=== PATIENT | male | born 1955 | race Caucasian/White ===

== ENCOUNTER → 2017-08-08 | Outpatient (CLI) | payer BC ==
[2017-08-08 09:28] LABS: CHOL/HDL RATIO 5.2; Cholesterol 202 mg/dL (50-200); HDL Cholesterol 39 mg/dL (>39); LDL/HDL RATIO 2.3; Low Density Lipoprotein Chol 90 mg/dL (0-110); Triglycerides 367 mg/dL (30-160); Very Low Density Lipoprot Chol 73 mg/dL (6-32)
== END ==
LOC: LAB SHORT 08:58
PROVIDERS: Nurse Practitioner Family
DX: E78.5 Hyperlipidemia, unspecified (principal)
CPT/HCPCS: 80061

== ENCOUNTER → 2017-10-30 | Outpatient (CLI) | payer BC ==
[2017-10-30 09:54] LABS: CHOL/HDL RATIO 5.8; Cholesterol 226 mg/dL (50-200); HDL Cholesterol 39 mg/dL (>39); LDL/HDL RATIO 2.8; Low Density Lipoprotein Chol 110 mg/dL (0-110); Triglycerides 386 mg/dL (30-160); Very Low Density Lipoprot Chol 77 mg/dL (6-32)
== END | disposition home or self-care (01) ==
LOC: LAB 09:01 → LAB SHORT 09:01
PROVIDERS: Nurse Practitioner Family
DX: E78.00 Pure hypercholesterolemia, unspecified (principal)
CPT/HCPCS: 80061

== ENCOUNTER → 2019-07-20 | Outpatient (CLI) | payer BC ==
[2019-07-21 13:37] LABS: Stool Occult Blood Guaiac 1 Neg (Neg)
== END | disposition home or self-care (01) ==
LOC: OLS 12:15 → LAB SHORT 12:15 → LAB FUT 07-19 15:00
PROVIDERS: Nurse Practitioner Family
DX: K92.1 Melena (principal); R53.83 Other fatigue
CPT/HCPCS: 82270

== ENCOUNTER → 2022-10-30 | Outpatient (CLI) | payer BC ==
[2022-10-30 19:38] LABS: BASOPHILS ABSOLUTE AUTO 0.05 K/mm3 (0.00-0.23); BASOPHILS PERCENT AUTO 1 % (0-2); EOSINOPHILS ABSOLUTE AUTO 0.11 K/mm3 (0.00-0.68); EOSINOPHILS PERCENT AUTO 1 % (0-6); Hematocrit 45.2 % (37.0-53.0); Hemoglobin 15.2 g/dL (13.5-17.5); IMMATURE GRAN ABSOLUTE AUTO 0.03 K/mm3 (0.00-0.10); IMMATURE GRAN PERCENT AUTO 0 % (0-1); LYMPHOCYTES ABSOLUTE AUTO 2.95 K/mm3 (0.84-5.20); LYMPHOCYTES PERCENT AUTO 31 % (21-46); MONOCYTES ABSOLUTE AUTO 0.65 K/mm3 (0.16-1.47); MONOCYTES PERCENT AUTO 7 % (4-13); Mean Corpuscular HGB 30.7 pg (26.0-34.0); Mean Corpuscular HGB Conc 33.6 g/dL (31.5-36.5); Mean Corpuscular Volume 91 fL (80-100); Mean Platelet Volume 10.4 fL (9.1-12.4); NEUTROPHILS ABSOLUTE AUTO 5.81 K/mm3 (1.96-9.15); NEUTROPHILS PERCENT AUTO 61 % (41-73); Platelet Count 336 K/mm3 (150-400); RDW Standard Deviation 43.7 fL (35.1-46.3); Red Blood Cell Count 4.95 M/mm3 (4.30-5.90)
[2022-10-30 20:03] LABS: Alanine Aminotransfer (ALT/SGP 33 U/L (12-78); Albumin, Blood 4.3 g/dL (3.4-5.0); Albumin/Globulin Ratio 1.2 (0.8-1.8); Alk Phos 43 U/L (50-136); Anion Gap 3 mmol/L (6-16); Aspartate Aminotrans (AST/SGOT 21 U/L (12-37); Bilirubin, Total 0.5 mg/dL (0.1-1.0); Blood Urea Nitrogen 19 mg/dL (8-24); Bun/Creatinine Ratio 22.9 (12.0-20.0); CO2, Blood 26 mmol/L (21-32); Calcium, Blood 9.4 mg/dL (8.5-10.1); Chloride, Blood 107 mmol/L (98-108); Cholesterol 197 mg/dL (50-200); Creatinine, Blood 0.83 mg/dL (0.60-1.20); Globulin, Blood 3.5 g/dL (2.2-4.0); Glomerular Filtration Rate 97 (60-); Glucose, Blood 118 mg/dL (70-99); HDL Cholesterol 33 mg/dL (>39); LDL/HDL RATIO Unable to Calculate; Low Density Lipoprotein Chol Unable to Calculate mg/dL (0-110); Potassium, Blood 3.9 mmol/L (3.5-5.5); Sodium, Blood 136 mmol/L (136-145); Total Protein, Blood 7.8 g/dL (6.4-8.2); Triglycerides 532 mg/dL (30-160); Very Low Density Lipoprot Chol Unable to Calculate mg/dL (6-32)
== END ==
LOC: LAB SHORT 17:52
PROVIDERS: Family Medicine
DX: Z12.5 Encounter for screening for malignant neoplasm of prostate (principal); E78.5 Hyperlipidemia, unspecified
CPT/HCPCS: 80053; 80061; 85025; G0103

== ENCOUNTER → 2023-06-28 | Outpatient (CLI) | payer OTHER ==
[2023-06-28 20:45] LABS: Alanine Aminotransfer (ALT/SGP 23 U/L (12-78); Albumin, Blood 4.1 g/dL (3.4-5.0); Albumin/Globulin Ratio 1.1 (0.8-1.8); Alk Phos 60 U/L (50-136); Anion Gap 4 mmol/L (6-16); Aspartate Aminotrans (AST/SGOT 14 U/L (12-37); Bilirubin, Total 0.6 mg/dL (0.1-1.0); Blood Urea Nitrogen 13 mg/dL (8-24); CHOL/HDL RATIO 5.1; CO2, Blood 26 mmol/L (21-32); Calcium, Blood 8.9 mg/dL (8.5-10.1); Chloride, Blood 108 mmol/L (98-108); Cholesterol 192 mg/dL (50-200); Globulin, Blood 3.6 g/dL (2.2-4.0); Glucose, Blood 119 mg/dL (70-99); HDL Cholesterol 38 mg/dL (>39); LDL/HDL RATIO 2.4; Low Density Lipoprotein Chol 91 mg/dL (0-110); Potassium, Blood 3.7 mmol/L (3.5-5.5); Sodium, Blood 138 mmol/L (136-145); Total Protein, Blood 7.7 g/dL (6.4-8.2); Triglycerides 314 mg/dL (30-160); Very Low Density Lipoprot Chol 62 mg/dL (6-32)
[2023-06-28 20:47] LABS: Creatinine, Blood 0.76 mg/dL (0.60-1.20); Glomerular Filtration Rate 99 (60-)
== END ==
LOC: LAB SHORT 18:40 → LAB 18:40
PROVIDERS: Family Medicine
DX: E78.5 Hyperlipidemia, unspecified (principal); Z83.2 Family history of diseases of the blood and blood-forming organs and certain disorders involving the immune mechanism
CPT/HCPCS: 80053; 80061

== ENCOUNTER → 2023-11-03 | Outpatient (CLI) | payer OTHER ==
[2023-11-04 17:28] LABS: Adenovirus F 40/41 Not Detected (NOT DETECT); Astrovirus Not Detected (NOT DETECT); Campylobacter Sp Detected (NOT DETECT); Cryptosporidium Not Detected (NOT DETECT); Cyclospora Cayetanensis Not Detected (NOT DETECT); E. Coli O157 Not Detected (NOT DETECT); Entamoeba Histolytica Not Detected (NOT DETECT); Enteroaggregative E. coli-EAEC Not Detected (NOT DETECT); Enteropathogenic E. coli-EPEC Not Detected (NOT DETECT); Enterotoxigenic E. coli-ETEC Not Detected (NOT DETECT); Giardia Lamblia Not Detected (NOT DETECT); Norovirus GI/GII Not Detected (NOT DETECT); Plesiomonas Shigelloides Not Detected (NOT DETECT); Rotavirus A Not Detected (NOT DETECT); Salmonella Sp Not Detected (NOT DETECT); Sapovirus Not Detected (NOT DETECT); Shiga Toxin-prod E. coli-STEC Not Detected (NOT DETECT); Shigella/Enteroin E. coli-EIEC Not Detected (NOT DETECT); Vibrio Cholerae Not Detected (NOT DETECT); Vibrio Sp Not Detected (NOT DETECT); Yersinia Enterocolitica Not Detected (NOT DETECT)
== END | disposition home or self-care (01) ==
LOC: LAB SHORT 20:00 → LAB EV 20:00 → LAB SHORT 11-04 13:56
PROVIDERS: Family Medicine
DX: K52.9 Noninfective gastroenteritis and colitis, unspecified (principal)
CPT/HCPCS: 87507